=== PATIENT | female | born 1955 | race African-American/Black ===

== ENCOUNTER → 2018-02-11 11:06 | Outpatient (CLI) | payer MEDICARE, SELFPAY | PROVIDERS: PCP Family Medicine; Visit Provider Student in an Organized Health Care Education/Training Program | DX: N89.8 Other specified noninflammatory disorders of vagina (principal) | CPT/HCPCS: 87086 ==

== ENCOUNTER → 2018-02-19 18:50 | Outpatient (CLI) | payer MEDICARE, SELFPAY ==
--- NOTE | 2018-02-19 18:52 | DI.MRI.S_ITS ---
PROCEDURE: MR KNEE RT WO CON INDICATIONS: KNEE PAIN - right TECHNIQUE: Noncontrast sagittal PD fast spin echo and T2 fast spin echo with fat saturation, sagittal 3-D FLASH with fat saturation; coronal T1 spin echo and PD fast spin echo with fat saturation, and axial PD fast spin echo with fat saturation through the knee. COMPARISON: None. FINDINGS: Image quality: Excellent. Menisci: There is large degenerative tear involving the body and posterior horn of the medial meniscus, and peripheral aspect of anterior horn of the medial meniscus. The lateral meniscus demonstrates normal morphology and internal signal. The meniscal root ligaments appear intact. Cruciate ligaments: The anterior and posterior cruciate ligaments appear intact. Medial structures: The medial collateral ligament appears intact. Visualized portions of the pes anserinus tendons appear normal. No abnormal bursal fluid. Lateral structures: The lateral collateral ligament, long and short heads of the biceps femoris tendon appear intact. The popliteus tendon appears normal; the popliteofibular ligament appears intact. The posterosuperior and anteroinferior popliteomeniscal fascicles appear intact. The arcuate and fabellofibular ligaments appear intact, on either side of the lateral inferior geniculate artery. Iliotibial band appears normal. Anterior structures: The quadriceps and patellar tendons appear intact. Patellar alignment is normal. No femoral trochlear dysplasia or ventral trochlear prominence. No edema in the infrapatellar fat pad. Bones and cartilage: No fractures. There is severe cartilage thinning with denuded articular surface of the medial femorotibial compartment. Moderate cartilage loss and fibrillation of the patellofemoral compartment and mild cartilage loss of the lateral femorotibial compartment are noted. There is bone marrow edema in the medial femoral condyle and medial tibial plateau likely sequelae of bone on bone. Severe joint space narrowing, subchondral cyst formation and osteophyte formation in the medial femorotibial compartment. Joint space: There is small knee joint effusion. Tiny Moreira's cyst. Normal appearing synovial plicae are incidentally noted. IMPRESSION: 1. 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 2. Tricompartmental cartilage loss, most pronounced in the medial femorotibial compartment. 3. Small knee joint effusion. Dictated by: Barber Clarke M.D. on 02/20/2018 at 9:59 Transcribed by: MARIUSZ on 02/20/2018 at 10:07 Approved by: Barber Clarke M.D. on 02/20/2018 at 11:22
== END ==
PROVIDERS: PCP Family Medicine; Visit Provider Student in an Organized Health Care Education/Training Program
DX: M25.561 Pain in right knee (principal); M23.211 Derangement of anterior horn of medial meniscus due to old tear or injury, right knee; M23.221 Derangement of posterior horn of medial meniscus due to old tear or injury, right knee; M23.231 Derangement of other medial meniscus due to old tear or injury, right knee; M17.11 Unilateral primary osteoarthritis, right knee; M25.461 Effusion, right knee
CPT/HCPCS: 73721

== ENCOUNTER 2018-02-19 19:20 | Emergency (ER) | payer MEDICARE, SELFPAY ==
[2018-02-19 19:33] VITALS: BP 158/85; PULSE 61; RESP 19; TEMP 36.1; O2SAT 93; BMI 28.0
--- NOTE | 2018-02-19 19:40 | ED.BACK ---
HPI - Back Pain/Injury <DHAVAL Magana - Last Filed: 02/19/18 21:19> General Chief Complaint: Back Pain/Injury Stated Complaint: right side rib pain in the back. Time Seen by Provider: 02/19/18 19:40 Source: patient Mode of arrival: ambulatory Limitations: no limitations History of Present Illness HPI Narrative: pt says she was here getting mri of her R knee, saw we were not busy, so thought she would check in because she has been having L arm pain for mos and denies any injury, says the pain does not radiate and it is strictly in her L upper arm, says she takes 10mg oxycodones and they are not helping her pain and she does not know why she is hurting, also c/o R rib pain and says she fell a few days ago, would like both things checked and wants to know why she is hurting MD Complaint: other (as above) Onset (ago): month(s) Duration: constant Similar Symptoms Previously: Yes Severity: severe Quality: throbbing Radiation: none Relieving factors: none Exacerbating factors: movement Associated symptoms: other Treatments prior to arrival: prescription analgesics Related Data Previous Rx's Medication Instructions Recorded terbinafine HCl 250 mg PO QDAY #30 tab 06/05/17 sertraline 50 mg tablet 50 mg PO QDAY #30 tab 08/28/17 trazodone 100 mg tablet 100 mg PO HS PRN #30 tab 08/28/17 zolpidem 10 mg tablet 10 mg PO HS PRN #30 tab 08/28/17 oxycodone 10 mg tablet 10 mg PO Q6H PRN #120 tab 02/11/18 oxycodone ER 30 mg tablet,crush 30 mg PO Q12H #60 tab 02/11/18 resistant,extended release 12 hr Allergies Allergy/AdvReac Type Severity Reaction Status Date / Time No Known Drug Allergies Allergy Verified 02/19/18 19:43 Review of Systems <DHAVAL Magana - Last Filed: 02/19/18 21:19> Review of Systems All systems reviewed & are unremarkable except as noted in HPI and below Constitutional Reports as per HPI Musculoskeletal Reports as per HPI, Reports abnormal gait, Denies deformity, Reports limited range of motion, Denies muscle weakness and Denies numbness Integumentary/Breasts Reports as per HPI, Denies unusual bruising and Denies wounds Neurologic Reports abnormal gait and Denies numbness Exam <DHAVAL Magana - Last Filed: 02/19/18 21:19> Initial Vital Signs Initial Vital Signs: Vital Signs Temperature 97 F L 02/19/18 19:33 Pulse Rate 61 02/19/18 19:33 Respiratory Rate 19 02/19/18 19:33 Blood Pressure 158/85 H 02/19/18 19:33 Pulse Oximetry 93 02/19/18 19:33 Const General: cooperative, healthy appearing, comfortable, well developed and well groomed Nutritional Appearance: average body habitus Orientation: alert, awake and oriented x3 HENMT Head: normal to inspection and normocephalic Ears: hearing grossly normal bilaterally, external ears normal, TM's normal bilaterally and mastoids normal Nose: external nose normal and nares normal Face and sinus: normal facial exam, sinuses nontender and face symmetric Mouth: oral mucosae normal, lip normal, tongue normal, oropharynx normal and moist mucous membranes Teeth and gingiva: dentition normal and gingiva normal Throat: posterior oropharynx normal, tonsils normal and uvula midline Eyes General: appearance normal, both eyes and all related structures Visual Tse: normal visual tse by confrontation Eyelids: eyelids normal Conjunctivae: conjunctivae normal Sclera: sclerae normal Pupils: PERRL EOM: EOM intact bilaterally Neck Neck: normal visual inspection, full ROM, no meningeal signs, trachea midline, supple and No lymphadenopathy Chest Chest: normal inspection of the chest, normal palpation of entire chest wall, No crepitus and No tenderness Resp Effort & Inspection: normal respiratory effort and able to speak in complete sentences Auscultation: clear to auscultation bilaterally Cardio Rate: regular rate Rhythm: regular rhythm Heart Sounds: S1 normal and S2 normal Back/Spine/Pelvis Cervical Spine: cervical ROM normal Thoracic/Lumbar Spine: thoraco-lumbar ROM normal Skin General: no rashes or lesions noted, elasticity normal, turgor normal and dry skin Neuro General: alert, awake, oriented x3 and meningeal signs present Cognition: normal cognition Speech: speech normal Gait: normal gait Motor: muscle tone normal throughout Sensory Exam: no sensory deficits noted Extrem General: normal to inspection and full ROM Right upper extremity: normal to inspection and full ROM Left upper extremity: normal to inspection, full ROM and shoulder/upper arm Details: inspection abnormal and normal ROM; no tenderness and no swelling Right lower extremity: normal to inspection and full ROM Left lower extremity: normal to inspection and full ROM Psych Appearance: grossly normal and well kempt Mental Status: mental status grossly normal Speech and Movement: speech and movement normal Mood: congruent mood Affect: normal affect Attitude: cooperative Thought Process: normal Thought Content: normal Judgment: judgment good <Vickey Sherman MD - Last Filed: 02/20/18 02:32> Initial Vital Signs Initial Vital Signs: Vital Signs Temperature 97 F L 02/19/18 19:33 Pulse Rate 61 02/19/18 19:33 Respiratory Rate 19 02/19/18 19:33 Blood Pressure 158/85 H 02/19/18 19:33 Pulse Oximetry 93 02/19/18 19:33 Course <DHAVAL Magana - Last Filed: 02/19/18 21:19> Course Narrative: went to discuss xray results and pt asleep, had to shake her foot to awaken her, results and dc plan discussed Orders Ordered: ED Orders 02/19/18 19:46 XR humerus LT 2V Stat XR ribs RT min 3V w CXR1V Stat Discontinued Medications Ketorolac Tromethamine (Toradol) 60 mg IM NOW ONE Stop: 02/19/18 19:47 Last Admin: 02/19/18 19:51 Dose: 60 mg Vital Signs - 8 hr 02/19/18 19:33 Temperature 97 F L Pulse Rate 61 Respiratory Rate 19 Blood Pressure 158/85 H Pulse Oximetry 93 <Vickey Sherman MD - Last Filed: 02/20/18 02:32> Orders Ordered: ED Orders 02/19/18 19:46 XR humerus LT 2V Stat XR ribs RT min 3V w CXR1V Stat Discontinued Medications Ketorolac Tromethamine (Toradol) 60 mg IM NOW ONE Stop: 02/19/18 19:47 Last Admin: 02/19/18 19:51 Dose: 60 mg Vital Signs - 8 hr 02/19/18 19:33 Temperature 97 F L Pulse Rate 61 Respiratory Rate 19 Blood Pressure 158/85 H Pulse Oximetry 93 MDM - Back Pain/Injury <DHAVAL Magana - Last Filed: 02/19/18 21:19> Differential Diagnosis Differential diagnosis: Likely other (substance abuse, chronic pain issues, rib fx, pneumo, fall, humerus fx, oa) Discharge Plan Departure Patient Disposition: Home Clinical Impression: Arm pain, Rib pain Discharge Date/Time: 02/19/18 21:04 Interventions: ED Discharge Assessment Last Done: 02/19/18 21:02 Instructions: DI for Rib Contusion, DI for Arm Pain Prescriptions: No Action oxycodone 10 mg tablet 10 mg PO Q6H PRN (Reason: pain) Qty: 120 RF: 0 oxycodone 30 mg tablet,oral only,ext.rel.12 hr 30 mg PO Q12H Qty: 60 RF: 0 terbinafine HCl 250 MG tablet 250 mg PO QDAY Qty: 30 RF: 2 zolpidem 10 mg tablet 10 mg PO HS PRN (Reason: insomnia) Qty: 30 RF: 0 trazodone 100 mg tablet 100 mg PO HS PRN (Reason: insomnia) Qty: 30 RF: 5 sertraline 50 mg tablet 50 mg PO QDAY Qty: 30 RF: 5 Referrals: Peter Gr MD [Primary Care Provider] - (in approx 3-5 days as needed) <Vickey Sherman MD - Last Filed: 02/20/18 02:32> Cosign ED Attending Cosignature Attestation: I was present in the ER at the time of this patient's care. I was available for verbal consultation, or to see the patient directly if requested. I agree with the assessment and treatment plan.
--- NOTE | 2018-02-19 19:46 | DI.RAD.S_ITS ---
PROCEDURE: XR HUMERUS LT 2V INDICATIONS: PAIN TECHNIQUE: 2 views of the humerus were acquired. COMPARISON: None. FINDINGS: Bones: No fractures or dislocations. No suspicious bony lesions. There are mild degenerative changes of the left glenohumeral and acromioclavicular joints. Soft tissues: No suspicious soft tissue calcifications. IMPRESSION: No acute fracture or dislocation of the left humerus. Dictated by: Finesse Anthony M.D. on 02/19/2018 at 20:40 Approved by: Finesse Anthony M.D. on 02/19/2018 at 20:43
--- NOTE | 2018-02-19 19:46 | DI.RAD.S_ITS ---
PROCEDURE: XR RIBS RT MIN 3V W CXR 1V INDICATIONS: FALL, RIB PAIN TECHNIQUE: 2 views of the right ribs were acquired, along with a single view chest. COMPARISON: [facility], CR, XR CHEST 2 VIEWS, 06/14/2017, 21:24. FINDINGS: Surgical changes and devices: None. Bones and chest wall: Overlying soft tissues appear unremarkable. Severe degenerative changes of the right glenohumeral joint are noted. Subtle contour irregularity of the posterior lateral aspect of the right seventh rib noted, but is unchanged from comparison exam of 06/14/17 and likely represents a sequela of a prior healed rib fracture. Lungs and pleura: No pleural effusions or pneumothorax. Lungs appear clear. Mediastinum: Mediastinal contours appear normal. Heart size is normal. IMPRESSION: No convincing radiographic evidence of an acute right rib fracture. Consider followup radiographs if there is continued clinical concern. Dictated by: Finesse Anthony M.D. on 02/19/2018 at 20:34 Approved by: Finesse Anthony M.D. on 02/19/2018 at 20:39
[2018-02-19] MEDS: KETOROLAC 60 MG/2 ML VIAL IM (19:51)
== END 2018-02-19 21:04 | disposition home or self-care (01) ==
PROVIDERS: Emergency Provider Nurse Practitioner; PCP Family Medicine
DX: M79.601 Pain in right arm (principal); R07.81 Pleurodynia; M25.561 Pain in right knee; M23.211 Derangement of anterior horn of medial meniscus due to old tear or injury, right knee; M23.221 Derangement of posterior horn of medial meniscus due to old tear or injury, right knee; M23.231 Derangement of other medial meniscus due to old tear or injury, right knee; M17.11 Unilateral primary osteoarthritis, right knee; M25.461 Effusion, right knee
CPT/HCPCS: 71101; 73060; 73721; 96372; 99282; 99283; J1885

== ENCOUNTER 2018-07-31 15:27 | Emergency (ER) | payer MEDICARE, MEDICAID, SELFPAY ==
--- NOTE | 2018-07-31 15:37 | DI.RAD.S_ITS ---
PROCEDURE: XR CHEST 1V INDICATIONS: chest pain TECHNIQUE: One view of the chest was acquired. COMPARISON: None. FINDINGS: Surgical changes and devices: None. Lungs and pleura: Lungs are clear. No pleural effusions or pneumothorax. Mediastinum: Mediastinal contours appear normal. Heart size is normal. Bones and chest wall: No suspicious bony lesions. Overlying soft tissues appear unremarkable. IMPRESSION: No acute cardiopulmonary disease process. Dictated by: Berenice Ward MD, PhD on 07/31/2018 at 16:05 Approved by: Berenice Ward MD, PhD on 07/31/2018 at 16:06
[2018-07-31 15:41] VITALS: BP 151/92; PULSE 62; RESP 22; TEMP 36.7; O2SAT 99; BMI 30.7
[2018-07-31 16:04] LABS: Add Manual Diff / Slide Review NO; Basophils Absolute Auto 0 /uL (0-100); Basophils Percent Auto 0.7 % (0-2); Eosinophils Absolute Auto 200 /uL (0-450); Eosinophils Percent Auto 3.4 % (2-4); Hematocrit 44.2 % (36-46); Lymphocytes Absolute Auto 1900 /uL (1100-4500); Lymphocytes Percent Auto 40.5 % (25-40); Mean Corpuscular Hemoglobin 31.9 PG (26-34); Mean Corpuscular Volume 93.8 fL (80-100); Monocytes Absolute Auto 500 /uL (0-900); Monocytes Percent Auto 9.7 % (3-14); Neutrophils Absolute Auto 2200 /uL (1500-7000); Neutrophils Percent Auto 45.7 % (50-75); Platelet Count 278 X10^3/uL (150-400); Red Blood Cell Count 4.72 X10^6/uL (4.0-5.2); Red Cell Distribution Width 13.3 % (11.6-14.8); White Blood Cell Count 4.8 X10^3/uL (4.5-11.0)
--- NOTE | 2018-07-31 16:05 | ED.CHESTPAIN ---
HPI - Chest Pain General Chief Complaint: Chest Pain Stated Complaint: high blood pressure, taken at [facility] Time Seen by Provider: 07/31/18 15:55 Source: patient Mode of arrival: ambulatory Limitations: no limitations History of Present Illness HPI narrative: Patient is a 62-year-old female who presents with chest pain. She was sitting in the ophthalmology office when she had sudden onset chest pain radiating through to her back. At she has had a progressively got worse but now seems to have down. She denies any shortness of breath with exertion. No arm or jaw pain. She said that she ate some beef jerky and then started having some chest discomfort. She denies any history of hypertension or coronary artery disease. She has no abdominal pain nausea vomiting. MD complaint: chest pain Onset (ago): minute(s) Duration: improved Severity: moderate Quality: heaviness Pain radiation: back Relieving factors: nothing Related Data Home Medications Medication Instructions Recorded Confirmed oxycodone See Rx Instructions .ROUTE .COMPLEX 07/31/18 07/31/18 trazodone 50 mg PO BEDTIME 07/31/18 07/31/18 Previous Rx's Medication Instructions Recorded celecoxib 200 mg capsule 200 mg PO DAILY #30 cap 07/04/18 oxycodone 30 mg tablet 30 mg PO Q6H PRN #120 tab 07/10/18 zolpidem 5 mg tablet 5 mg PO HS PRN #7 tab 07/10/18 Allergies Allergy/AdvReac Type Severity Reaction Status Date / Time No Known Drug Allergies Allergy Verified 07/10/18 16:12 Review of Systems Review of Systems GENERAL: Denies chills, fatigue, malaise, fever, sweats, travel HEENT: Denies sinus pain, ear pain, sore throat, difficulty swallowing, neck pain RESPIRATORY: Denies dyspnea, cough, wheezing, hemoptysis, sputum. CARDIOVASCULAR: See HPI GASTROINTESTINAL: Denies nausea, vomiting, abdominal pain, diarrhea, constipation, melena. : Denies dysuria, frequency, incontinence, hematuria, urinary retention, flank pain. MUSCULOSKELETAL: Denies weakness, joint pain, or bony pain SKIN: No rash, no erythema, no pruritus NEUROLOGIC: Denies weakness, dizziness, headache, numbness, change in speech, confusion PSYCHIATRIC: No concerning psychosocial issues. 12 point review of systems is negative except for those stated above and HPI [facility] Social History Smoking Status: Unknown if ever smoked quit status: considering quitting Exam Initial Vital Signs Initial Vital Signs: Vital Signs Temperature 98.0 F 07/31/18 15:41 Pulse Rate 62 07/31/18 15:41 Respiratory Rate 22 07/31/18 15:41 Blood Pressure 151/92 H 07/31/18 15:41 Pulse Oximetry 99 07/31/18 15:41 GENERAL: Alert well-appearing middle-aged female no acute distress HEENT: Head atraumatic,EOMI, pupils reactive, asymmetric, neck supple, no JVD CARDIOVASCULAR: Regular rate and rhythm without murmurs, rubs or gallops. RESPIRATORY: Breath sounds equal bilaterally, no wheezes rales or rhonchi. ABDOMEN: Soft, nontender. Normoactive bowel sounds all 4 quadrants. No guarding or rebound. EXTREMITIES: Normal range of motion, no clubbing or edema. Neurovascularly intact NEUROLOGICAL: Alert and oriented x4.Normal gait and speech. Cranial nerves II through XII grossly intact. SKIN: Warm, dry, no laceration, no petechiae, no rashes or lesions. Scores HEART Score Heart Score history: Slightly Suspicious Heart Score EKG: Normal Heart Score Age: 45-64 years old Heart Score risk factors: No known risk factors Heart Score troponin: < or = to normal limit Heart Score Total: 1 PERC Score Age greater than or equal to 50 years: Yes Heart rate greater than or equal to 100 bpm: No Room Air O2 Sat less than 95%: No Unilateral leg swelling: No Recent trauma or surgery: No Hemoptysis: No Prior PE or DVT: No Hormone Use: No Total PERC Score: 1 Wells' Criteria for PE Clinical signs and symptoms of PE: No PE is #1 Dx or equally likely: No Heart rate > 100: No Immobilization at least 3 days or surg in previous 4 weeks: No History of PE or DVT: No Hemoptysis: No Malignancy w/Treatment within 6 months or palliative: No Wells' PE Score total: 0 Course Orders Ordered: Discontinued Medications Aspirin (Aspirin Chew) 324 mg PO NOW ONE Stop: 07/31/18 16:04 Last Admin: 07/31/18 16:13 Dose: 324 mg Vital Signs - 8 hr 07/31/18 15:41 07/31/18 16:41 Temperature 98.0 F Pulse Rate 62 Respiratory Rate 22 19 Blood Pressure 151/92 H Blood Pressure [Left Arm] 139/93 H Pulse Oximetry 99 MDM - Chest Pain Lab Data Attestation: I reviewed the patient's lab results. Result diagrams: 07/31/18 15:55 07/31/18 15:55 Lab Results 07/31/18 07/31/18 07/31/18 Range/Units 15:55 15:55 15:55 WBC 4.8 (4.5-11.0) X10^3/uL RBC 4.72 (4.0-5.2) X10^6/uL Hgb 15.0 (12.0-16.0) g/dL Hct 44.2 (36-46) % MCV 93.8 (80-100) fL MCH 31.9 (26-34) PG MCHC 34.0 (30-36) % RDW 13.3 (11.6-14.8) % Plt Count 278 (150-400) X10^3/uL Neut % (Auto) 45.7 L (50-75) % Lymph % (Auto) 40.5 H (25-40) % Smyth % (Auto) 9.7 (3-14) % Eos % (Auto) 3.4 (2-4) % Baso % (Auto) 0.7 (0-2) % Neut # (Auto) 2200 (4785-0248) /uL Lymph # (Auto) 1900 (0951-2365) /uL Smyth # (Auto) 500 (0-900) /uL Eos # (Auto) 200 (0-450) /uL Baso # (Auto) 0 (0-100) /uL PT 12.0 (10.1-12.7) SECONDS INR 1.0 (0.9-1.3) APTT 30 (26.4-36.2) SECONDS Sodium 140 (137-145) mmol/L Potassium 3.9 (3.4-5.1) mmol/L Chloride 106 (98-107) mmol/L Carbon Dioxide 26 (22-32) mmol/L BUN 11 (7-17) mg/dL Creatinine 0.80 (0.52-1.04) mg/dL Estimated GFR > 60.0 (>60) mL/min BUN/Creatinine Ratio 13.8 (6-22) Glucose 99 (80-110) mg/dL Calcium 9.2 (8.4-10.2) mg/dL Total Bilirubin 0.6 (0.2-1.3) mg/dL AST 45 H (14-36) IU/L ALT 44 (9-52) IU/L Alkaline Phosphatase 92 (38-126) U/L Total Creatine Kinase 97 (30-135) U/L CK-MB (CK-2) TNP CK-MB (CK-2) Rel Index TNP Troponin I < 0.012 (0.01-0.034) ng/mL Total Protein 7.7 (6.3-8.2) g/dL Albumin 4.2 (3.5-5.0) g/dL Globulin 3.5 (1.7-4.1) g/dL Albumin/Globulin Ratio 1.2 (1.0-2.8) Lipase 33 (23-300) U/L // Range/Units 18:25 WBC (4.5-11.0) X10^3/uL RBC (4.0-5.2) X10^6/uL Hgb (12.0-16.0) g/dL Hct (36-46) % MCV (80-100) fL MCH (26-34) PG MCHC (30-36) % RDW (11.6-14.8) % Plt Count (150-400) X10^3/uL Neut % (Auto) (50-75) % Lymph % (Auto) (25-40) % Smyth % (Auto) (3-14) % Eos % (Auto) (2-4) % Baso % (Auto) (0-2) % Neut # (Auto) (2504-3725) /uL Lymph # (Auto) (3642-6653) /uL Smyth # (Auto) (0-900) /uL Eos # (Auto) (0-450) /uL Baso # (Auto) (0-100) /uL PT (10.1-12.7) SECONDS INR (0.9-1.3) APTT (26.4-36.2) SECONDS Sodium (137-145) mmol/L Potassium (3.4-5.1) mmol/L Chloride (98-107) mmol/L Carbon Dioxide (22-32) mmol/L BUN (7-17) mg/dL Creatinine (0.52-1.04) mg/dL Estimated GFR (>60) mL/min BUN/Creatinine Ratio (6-22) Glucose (80-110) mg/dL Calcium (8.4-10.2) mg/dL Total Bilirubin (0.2-1.3) mg/dL AST (14-36) IU/L ALT (9-52) IU/L Alkaline Phosphatase (38-126) U/L Total Creatine Kinase (30-135) U/L CK-MB (CK-2) CK-MB (CK-2) Rel Index Troponin I 0.017 (0.01-0.034) ng/mL Total Protein (6.3-8.2) g/dL Albumin (3.5-5.0) g/dL Globulin (1.7-4.1) g/dL Albumin/Globulin Ratio (1.0-2.8) Lipase (23-300) U/L Imaging Data Chest x-ray: Radiologist's impression: PROCEDURE: XR CHEST 1V INDICATIONS: chest pain TECHNIQUE: One view of the chest was acquired. COMPARISON: None. FINDINGS: Surgical changes and devices: None. Lungs and pleura: Lungs are clear. No pleural effusions or pneumothorax. Mediastinum: Mediastinal contours appear normal. Heart size is normal. Bones and chest wall: No suspicious bony lesions. Overlying soft tissues appear unremarkable. IMPRESSION: No acute cardiopulmonary disease process. Dictated by: Berenice Ward MD, PhD on 07/31/2018 at 16:05 ECG Data Attestation: I personally reviewed and interpreted this ECG as follows: Prior ECG tracings: not available for review Interpretation: EKG 1. Normal sinus rhythm rate 59 year interval 174 QRS [address] changes slightly peaked T-waves in V3-V6, no ST depression no T-wave inversion no priors to compare Repeat EKG normal sinus rhythm rate 61 p.r. interval 185 no changes from prior she does have T-wave inversion more pronounced in lead [address] elevations. MDM Narrative Medical decision making narrative: 5:15 p.m. the patient is wanting to leave. I discussed with her a need for 2nd troponin and then likely DC. Her 2nd troponin is actually supposed to be at 7:00 p.m. however she has agreed to stay until 6:00 p.m. to have her 2nd troponin drawn. We discussed how she would likely still need a stress test possible further studies [place] has not yet been completely ruled out. I suspect that she will likely go home a 2nd troponin returns normal. she overall is chest pain-free while in the ED and does not require any medication. I was informed by nursing staff that after patient's 2nd troponin at 6:00 p.m. and she left [facility]. I did not get a chance to talk with her beforehand. She is low risk with a low heart score Discharge Plan Departure Patient Disposition: Left Against Medical Advice Clinical Impression: Left against medical advice Discharge Date/Time: 07/31/18 18:11 Interventions: ED Discharge Assessment Last Done: 07/31/18 18:11 Prescriptions: No Action zolpidem 5 mg tablet 5 mg PO HS PRN (Reason: insomnia) Qty: 7 RF: 0 oxycodone 30 mg tablet 30 mg PO Q6H PRN (Reason: pain) Qty: 120 RF: 0 oxycodone 10 mg tablet See Rx Instructions .ROUTE .COMPLEX RF: 0 trazodone 50 mg tablet 50 mg PO BEDTIME RF: 0 celecoxib [Celebrex] 200 mg capsule 200 mg PO DAILY Qty: 30 RF: 2 Referrals: Lorne Zamora MD [Primary Care Provider] - Stand Alone Forms: Against Medical Advice
[2018-07-31] MEDS: ASPIRIN 81 MG TAB 324 MG PO (16:13)
[2018-07-31 16:17] LABS: PTT Partial Thromboplastin Tim 30 SECONDS (26.4-36.2)
[2018-07-31 16:19] LABS: Alanine Aminotransferase 44 IU/L (9-52); Albumin 4.2 g/dL (3.5-5.0); Albumin Globulin Ratio 1.2 (1.0-2.8); Alkaline Phosphatase 92 U/L (38-126); Aspartate Aminotransferase 45 IU/L (14-36); BUN Creatinine Ratio 13.8 (6-22); Bilirubin Total 0.6 mg/dL (0.2-1.3); Blood Urea Nitrogen 11 mg/dL (7-17); Calcium 9.2 mg/dL (8.4-10.2); Carbon Dioxide 26 mmol/L (22-32); Chloride 106 mmol/L (98-107); Creatine Kinase 97 U/L (30-135); Estimated Glomerular Filt Rate > 60.0 mL/min (>60); Globulin 3.5 g/dL (1.7-4.1); Glucose 99 mg/dL (80-110); HEMOLYSIS < 15 (0-50); Lipase 33 U/L (23-300); Potassium 3.9 mmol/L (3.4-5.1); Sodium 140 mmol/L (137-145); Total Protein 7.7 g/dL (6.3-8.2)
--- NOTE | 2018-07-31 16:26 | PC.NURSE ---
Patient was sitting at [facility] when she had a sudden onset of left chest pain, some SOB. Patient has never had pain like this before. Patient is a 2 pack a day smoker and recently started using an E pen. Patient states she ate some beef sticks and peanuts and is concerned that it might be reflux. Denies stress.
[2018-07-31 16:30] LABS: Troponin I < 0.012 ng/mL (0.01-0.034)
--- NOTE | 2018-07-31 16:37 | PC.NURSE ---
Repeat EKG being completed at bedside
[2018-07-31 16:41] VITALS: BP 139/93; RESP 19
--- NOTE | 2018-07-31 17:24 | PC.NURSE ---
Patient requesting to leave, Elvis at bedside. Agreed to stay for repeat blood draw at 1800.
--- NOTE | 2018-07-31 18:33 | PC.NURSE ---
Patient dressed and walked out of room requesting to leave. Informed the patient she would need to sign out AMA. Signed by patient. Patient aware of risks of heart attack and potentially .
[2018-07-31 18:53] LABS: Troponin I 0.017 ng/mL (0.01-0.034)
--- NOTE | 2018-07-31 19:22 | PC.NURSE ---
Pt troponin reviewed w/ Dr. Leal. No new orders. States she would have discharged the patient w/ that lab report. Prior to leaving pt was told to f/u w/ PMD, return for any difficulty or concerns or worsening symptoms.
--- NOTE | 2018-07-31 19:31 | PC.NURSE ---
Pt called back, informed of lab results. Encouraged to return if any difficulty or concerns, worsening difficulty, return sooner for any difficulty. Email sent to Dr. Zamora (pt's PCP) requesting follow up appointment.
== END 2018-07-31 18:11 | disposition left against medical advice (07) ==
PROVIDERS: Emergency Provider Emergency Medicine; PCP Student in an Organized Health Care Education/Training Program
DX: R07.9 Chest pain, unspecified (principal); R68.84 Jaw pain; R03.0 Elevated blood-pressure reading, without diagnosis of hypertension; Z53.20 Procedure and treatment not carried out because of patient's decision for unspecified reasons
CPT/HCPCS: 36415; 36591; 71045; 80053; 82550; 83690; 84484; 85025; 85610; 85730; 93005; 93010; 99283; 99285

== ENCOUNTER → 2018-08-07 15:32 | Outpatient (CLI) | payer MEDICARE, MEDICAID, SELFPAY ==
[2018-08-07 17:26] LABS: Cholesterol 137 mg/dL (140-199); HDL Cholesterol 63 mg/dL (40-60); LDL Cholesterol Calculated 65 mg/dL (<100); Magnesium 2.1 mg/dL (1.6-2.3); Phosphorous 3.7 mg/dL (2.8-4.1); Triglycerides 44 mg/dL (35-150)
[2018-08-07 17:27] LABS: Hemoglobin A1C% w Est Avg Glu 5.2 % (4.0-6.0)
[2018-08-07 17:34] LABS: High Sensitivity CRP - Cardiac 0.3 mg/L (1.0-3.0)
[2018-08-07 20:43] LABS: Vitamin D 25 Hydroxy (D3) 37.8 ng/mL (30.0-100.0)
== END ==
PROVIDERS: PCP Student in an Organized Health Care Education/Training Program; Visit Provider Student in an Organized Health Care Education/Training Program
DX: B37.3 Candidiasis of vulva and vagina (principal); E66.9 Obesity, unspecified; E55.9 Vitamin D deficiency, unspecified; I20.8 Other forms of angina pectoris; R25.2 Cramp and spasm; Z13.220 Encounter for screening for lipoid disorders
CPT/HCPCS: 36415; 80061; 82306; 83036; 83735; 84100; 86140

== ENCOUNTER → 2018-09-20 08:00 | Outpatient (CLI) | payer MEDICARE, MEDICAID, SELFPAY ==
--- NOTE | 2018-09-20 08:02 | DI.MG.S_ITS ---
Patient Name: PATRICIA JC date: 1955 Sex: F Attending Physician: Sera Indications: Date: 09/20/2018 08:52 At the request of: BREONNA EDMONDSON Procedure: MM screening mammo BI BILATERAL DIGITAL SCREENING MAMMOGRAM 3D/2D WITH CAD: 09/20/2018 CLINICAL: Routine screening. Baseline exam. No prior exams were available for comparison. The tissue of both breasts is heterogeneously dense. This may lower the sensitivity of mammography. Current study was also evaluated with a Computer Aided Detection (CAD) system. There is an oval equal density focal asymmetry in the right breast superior lateral quadrant anterior to middle depth. Finding is best noted on tomographic CC slice 12 and MLO slice 16. There also is an asymmetry in the right breast anterior depth inferior region seen on the mediolateral oblique view only. No other significant masses, calcifications, or other findings are seen in either breast. IMPRESSION: INCOMPLETE: NEEDS ADDITIONAL IMAGING EVALUATION 1) The oval equal density focal asymmetry in the right breast superior lateral quadrant anterior to middle depth is indeterminate. Additional views with possible ultrasound are recommended. 2) The asymmetry in the right breast anterior depth inferior region seen on the mediolateral oblique view only is indeterminate. Additional views with possible ultrasound are recommended. This exam was interpreted at Station ID: [id number]. NOTE: For mammograms, a report in lay terms will be sent to the patient. Approximately 15% of breast malignancies will not be visualized mammographically. In the management of a palpable breast mass, a negative mammogram must not discourage biopsy of a clinically suspicious lesion. Electronically Signed By: Finesse Anthony M.D. ecl/:09/20/2018 12:54:43 Continued Report - Page 2 of 2 Patient Name: PATRICIA JC date: 1955 Sex: F Attending Physician: Sera Indications: Date: 09/20/2018 08:52 At the request of: BREONNA EDMONDSON Procedure: MM screening mammo BI letter sent: Additional Imaging Needed ACR BI-RADS Category 0: Incomplete [id number]
--- NOTE | 2018-09-20 08:42 | PM.TREADMILL ---
Cardiac Stress Test Report Referral & Results Date Patient Seen: 09/20/18 Time Patient Seen: 08:30 Requesting provider: Lorne Zamora Indication: Typical chest pain at rest Rest ECG: NSR Procedure Note: Today following both written and verbal informed consent, the patient was exercised according to a standard Masood protocol. The patient exercised for a total of 5 minutes 30 seconds achieving a maximum heart rate of 138. Patient's maximum systolic blood pressure was 180. This was an estimated 7 MET's. Testing discontinued when the patient was unable to continue. She endorsed typical angina at and exertion which resolved quickly with rest. Additionally, she had shortness of breath and marked fatigue. Stated that she had a cold today. ZAIRA about 5% on sedentary scale. No EKG changes. Impression: Intermediate probability for ischemia. Muhammad treadmill score of -3 indicates 5-year survival of 90%. Please note: Actual ECG tracings can be found in the PACS system.
== END ==
PROVIDERS: PCP Student in an Organized Health Care Education/Training Program; Visit Provider Student in an Organized Health Care Education/Training Program
DX: Z12.31 Encounter for screening mammogram for malignant neoplasm of breast (principal); I20.8 Other forms of angina pectoris
CPT/HCPCS: 77063; 77067; 93016; 93017; 93018

== ENCOUNTER → 2018-12-04 13:12 | Outpatient (CLI) | payer MEDICARE, MEDICAID, OTHER, SELFPAY ==
--- NOTE | 2018-12-04 13:15 | DI.MG.S_ITS ---
UNILATERAL RIGHT DIGITAL DIAGNOSTIC MAMMOGRAM 3D/2D WITH ADDITIONAL VIEWS: 12/04/2018 CLINICAL: Additional evaluation requested from prior study. Comparison is made to exam dated: 09/20/2018 [facility]. The tissue of right breast is heterogeneously dense. This may lower the sensitivity of mammography. There is 0.5 cm oval equal density focal asymmetry in the right breast at 10 o'clock anterior depth. This is seen in additional views and has not significantly changed. The benign asymmetry in the right breast anterior depth inferior region seen on the mediolateral oblique view only is no longer seen. This is consistent with summation artifact. No other significant masses or calcifications are seen in the breast. IMPRESSION: INCOMPLETE: NEEDS ADDITIONAL IMAGING EVALUATION The 0.5 cm oval equal density focal asymmetry in the right breast at 10 o'clock anterior depth is indeterminate. An ultrasound is recommended. The previously described asymmetry in the anterior inferior right breast seen only on the mediolateral oblique view disperses with additional views and is consistent with summation artifact. Of note, the recommended ultrasound was scheduled to immediately follow this examination; however, the patient could not wait for it because she had another appointment she did not want to miss. The patient was rescheduled for another ultrasound appointment. This exam was interpreted at Station ID: [id number]. NOTE: For mammograms, a report in lay terms will be sent to the patient. Approximately 15% of breast malignancies will not be visualized mammographically. In the management of a palpable breast mass, a negative mammogram must not discourage biopsy of a clinically suspicious lesion. Electronically Signed By: Kartik Aparicio M.D. aty/:12/05/2018 09:54:47 letter sent: Need Ultrasound ACR BI-RADS Category 0: Incomplete [id number]
== END ==
PROVIDERS: PCP Student in an Organized Health Care Education/Training Program; Visit Provider Student in an Organized Health Care Education/Training Program
DX: R92.8 Other abnormal and inconclusive findings on diagnostic imaging of breast (principal)
CPT/HCPCS: 77065; G0279

== ENCOUNTER → 2018-12-13 15:07 | Outpatient (CLI) | payer MEDICARE, MEDICAID, OTHER, SELFPAY ==
--- NOTE | 2018-12-13 15:09 | DI.US.S_ITS ---
LIMITED ULTRASOUND OF RIGHT BREAST AND AXILLA: 12/13/2018 CLINICAL: Patient returns today to evaluate a focal asymmetry in the right breast. Comparison is made to exams dated: 12/04/2018 mammogram and 09/20/2018 mammogram - [facility]. Color flow and real-time ultrasound of the right breast 9-10 o'clock, and axilla regions were performed. Langley scale images of the real-time examination were reviewed. There is a 0.7 x 0.5 x 0.4 cm oval circumscribed hypoechoic mass with no vascularity on Doppler ultrasound located in the right breast at 9:30 5 cm from the nipple. This appears to correlate with the finding seen on mammography. Targeted ultrasound of the axilla demonstrates morphologically normal lymph nodes. IMPRESSION: SUSPICIOUS OF MALIGNANCY 1) 0.7 x 0.5 x 0.4 cm oval mass in the right breast at 9:30 5 cm from the nipple may represent a fibroadenoma and is at low suspicion for malignancy. An ultrasound guided biopsy is recommended. 2) No ultrasound evidence of right axillary lymphadenopathy. These results and recommendations were discussed with the patient at the time of the exam by Dr. Anthony in person. This exam was interpreted at Station ID: [id number]. Electronically Signed By: Finesse Anthony M.D. ecl/:12/13/2018 15:37:11 letter sent: Biopsy Required Ultrasound BI-RADS: 4a Suspicious abnormality - low suspicion for malignancy
== END ==
PROVIDERS: PCP Student in an Organized Health Care Education/Training Program; Visit Provider Student in an Organized Health Care Education/Training Program
DX: R92.8 Other abnormal and inconclusive findings on diagnostic imaging of breast (principal); N63.11 Unspecified lump in the right breast, upper outer quadrant
CPT/HCPCS: 76642

== ENCOUNTER → 2018-12-27 14:07 | Outpatient (CLI) | payer MEDICARE, MEDICAID, OTHER, SELFPAY ==
--- NOTE | 2018-12-27 | DI.MG.S_ITS ---
UNILATERAL RIGHT DIGITAL DIAGNOSTIC MAMMOGRAM POST-NEEDLE BIOPSY: 12/27/2018 CLINICAL: Right abnormal mammogram. Comparison is made to exams dated: 12/04/2018 mammogram, 09/20/2018 mammogram, 12/13/2018 ultrasound, and 12/27/2018 ultrasound biopsy - [facility]. The tissue of right breast is heterogeneously dense. This may lower the sensitivity of mammography. There is a newly placed marker clip in the appropriate position in the right breast at 9:30 o'clock anterior depth. This marker clip placement is at the biopsy site. IMPRESSION: POST PROCEDURE MAMMOGRAM FOR MARKER PLACEMENT Marker clip in the appropriate position in the right breast at 9:30 o'clock anterior depth at the biopsy site. This exam was interpreted at Station ID: [id number]. NOTE: For mammograms, a report in lay terms will be sent to the patient. Approximately 15% of breast malignancies will not be visualized mammographically. In the management of a palpable breast mass, a negative mammogram must not discourage biopsy of a clinically suspicious lesion. Electronically Signed By: Noé Saunders M.D. slc/:12/27/2018 15:47:20 ACR BI-RADS Category Post-procedure mammogram for marker placement
--- NOTE | 2018-12-27 | PATH_ITS ---
[facility] Accession Number: [id number] . 01 Material submitted: . breast - RT BREAST BX . 02 Diagnosis: Right Breast, Needle Core Biopsy: Fibroadeomatous change (spanning 5 mm) and fibrocystic changes. Negative for atypical hyperplasia, in situ or invasive carcinoma. MRV 12/30/2018 1051 Local . 02 Comment: Please correlate with the clinical and imaging findings. . As part of routine quality consultant, Dr. Berry has reviewed this case and agrees with the above interpretation. . 02 Electronically signed: . John Potts MD, PhD, Pathologist NPI- [id number] . 01 Gross description: . Received in formalin, labeled RT breast BX, are multiple fragments of fatty tissue (1.5 x 1.2 x 0.2 cm in aggregate). Entirely submitted in cassette A1. Note: The approximate total fixation time in formalin is calculated to be 65 hours 30 minutes. ([id number]) /MRV 12/29/2018 1929 Local . 02 Pathologist provided ICD-10: D24.1 . 02 CPT . 024138 Performed at: 01 [facility] [address] [facility], [place], [place] [id number] MD Robbin Stewart MD Phone: [phone] Performed at: 02 [facility] [address] [place], [place] [id number] MD Amy Marinelli MD Phone: [phone]
--- NOTE | 2018-12-27 14:09 | DI.US.S_ITS ---
ULTRASOUND GUIDED BIOPSY RIGHT BREAST USING VACUUM DEVICE WITH MARKING DEVICE INSERTED AND POST DIGITAL MAMMOGRAPHIC IMAGIN12/27/2018 CLINICAL: BX OF RT BREAST MASS. PATIENT CONSENT: Risks (minor bleeding, infection, vasovagal reaction and repeat procedure), benefits and alternatives were explained to the patient and written informed consent was obtained. Correlation is made to exams dated: 12/13/2018 ultrasound, 12/04/2018 mammogram, 09/20/2018 mammogram, and 12/27/2018 mammogram - [facility]. An ultrasound guided biopsy using real-time ultrasound was performed for the 0.7 cm mass located in the right breast at 9 o'clock anterior depth 5 cm from the nipple. The skin was prepped in the usual manner. Topical anesthetic was administered to the access site. A skin hesham was made in the breast. The abnormality was approached from the lateral aspect. A 13 gauge biopsy needle was placed adjacent to the abnormality under ultrasound guidance. Once the needle was documented to be in the correct location, four specimens were obtained using the Mammotome biopsy system. The patient received additional topical anesthetic during the procedure. A clip was inserted into the biopsy cavity. A sterile dressing was applied to the access site. Post procedure digital mammographic imaging demonstrates the location device at the targeted area. The specimens were sent to the laboratory for pathological analysis. IMPRESSION: ULTRASOUND GUIDED BIOPSY BENIGN Ultrasound guided biopsy of the 0.7 cm mass in the right breast at 9 o'clock anterior depth 5 cm from the nipple was successful with no apparent post procedure complications. Pathology indicates benign fibroadenomatoid change and fibrocystic changes (FC). Pathology results are concordant with imaging findings. Return to annual mammogram screening schedule is recommended. Results were communicated to the referring clinician. This exam was interpreted at Station ID: [id number]. Noé Sun M.D. slc,krg/:12/31/2018 21:11:24
== END ==
PROVIDERS: PCP Student in an Organized Health Care Education/Training Program; Visit Provider Student in an Organized Health Care Education/Training Program
DX: D24.1 Benign neoplasm of right breast (principal); N60.11 Diffuse cystic mastopathy of right breast
CPT/HCPCS: 19083; 77065

== ENCOUNTER → 2019-02-25 15:34 | Outpatient (CLI) | payer MEDICARE, MEDICAID, SELFPAY ==
[2019-02-25 18:48] LABS: HIV 1 & 2 Ab/Ag 4th Gen Combo NEGATIVE (NEGATIVE); Hep C Virus Ab w/Reflex Quant REACTIVE s/c (NEGATIVE)
== END ==
PROVIDERS: PCP Student in an Organized Health Care Education/Training Program; Visit Provider Student in an Organized Health Care Education/Training Program
DX: Z71.1 Person with feared health complaint in whom no diagnosis is made (principal)
CPT/HCPCS: 36415; 86803; 87389; 87522

== ENCOUNTER → 2020-05-12 10:35 | Outpatient (CLI) | payer MEDICARE, MEDICAID, SELFPAY ==
--- NOTE | 2020-05-12 10:37 | DI.RAD.S_ITS ---
PROCEDURE: XR SHOULDER RT MIN 2V INDICATIONS: UPDATE IMAGING TECHNIQUE: 3 views of the shoulder were acquired. COMPARISON: [facility], RG, XR SHOULDER 2V RIGHT, 03/06/2018, 12:05. FINDINGS: Bones: No fracture. Severe right glenohumeral joint degeneration with qdtl-ej-wrxw appearance. Scattered degenerative subchondral sclerosis and spurring. Mild to moderate right AC joint degeneration. Soft tissues: No suspicious soft tissue calcifications. IMPRESSION: Severe right shoulder joint degeneration. This has progressed since prior study from 03/06/18. Dictated by: Morgan Henley M.D. on 05/12/2020 at 11:34 Approved by: Morgan Henley M.D. on 05/12/2020 at 11:36
== END ==
PROVIDERS: Family Provider Student in an Organized Health Care Education/Training Program; PCP Student in an Organized Health Care Education/Training Program; Referring Provider Physical Medicine & Rehabilitation; Visit Provider Physical Medicine & Rehabilitation
DX: M25.511 Pain in right shoulder (principal); M19.011 Primary osteoarthritis, right shoulder
CPT/HCPCS: 73030; 99214

== ENCOUNTER → 2021-08-01 14:11 | Outpatient (CLI) | payer MEDICARE, MEDICAID, SELFPAY ==
[2021-08-01 15:01] LABS: COVID19 -Nasal RAPID Negative (Negative)
== END ==
PROVIDERS: Family Provider Student in an Organized Health Care Education/Training Program; PCP Student in an Organized Health Care Education/Training Program; Visit Provider Surgery
DX: Z01.812 Encounter for preprocedural laboratory examination (principal); Z20.822 Contact with and (suspected) exposure to COVID-19
CPT/HCPCS: 87635; C9803

== ENCOUNTER 2021-08-02 11:47 | Day surgery (SDC) | payer MEDICARE, MEDICAID, SELFPAY ==
[2021-08-01 10:34] VITALS: BMI 30.8
[2021-08-02] VITALS (12 sets, daily range): BP systolic 105–158; BP diastolic 61–100; PULSE 63–89; RESP 14–20; TEMP 35.9–36.8; O2SAT 15–100; BMI 30.8
--- NOTE | 2021-08-02 | PATH_ITS ---
[facility] Accession Number: [id number] No. of containers..01 Tissue . 01 Material submitted: . hernia - HERNIA SAC . 01 Diagnosis: Soft Tissue, Ventral Hernia, Herniorrhaphy: Fibroadipose tissue, consistent with hernial tissues. Negative for neoplasia. MRV 08/05/2021 1432 Local . 01 Electronically signed: . Jesica Herrera MD, Pathologist NPI- [id number] . 01 Gross description: . The specimen is received in formalin, labeled hernia sac, and consists of an excision of fibroadipose tissue measuring 6.8 x 5.0 x 2.7 cm. Sectioning the specimen reveals red-brown and fibrous to pale yellow and fatty cut surfaces, free of identifiable lesions or masses. The specimen is representatively submitted in two cassettes. ([id number]) /MRV 08/03/2021 1504 Local . 01 Pathologist provided ICD-10: K43.9 . 01 CPT . 007901 Specimen Comment: A courtesy copy of this report has been sent to [phone] Performed at: 01 [facility] [address] [place] [address], [place], [place] [id number] MD Robbin Stewart MD Phone: [phone]
[2021-08-02] MEDS: LACTATED RINGERS 1,000 ML 42 ML IV (12:35)
[2021-08-02] MEDS: ACETAMINOPHEN 325 MG TABLET 975 MG PO (12:39)
[2021-08-02] MEDS: GABAPENTIN 300 MG CAPSULE PO (12:39)
--- NOTE | 2021-08-02 13:11 | PM.PREOP ---
Pre-operative Note COVID-19 COVID-19 status: Negative Result date/Date tested (Pos, Neg/Pending): 08/01/21 Interval Note History & Physical reviewed/Exam performed by Physician: Yes Changes to H&P: No ASA Class (for procedural sedation): II
[2021-08-02] MEDS: CEFAZOLIN 2 GM/20 ML SYRINGE IV (13:26)
--- NOTE | 2021-08-02 14:06 | SUR.OPER ---
Supine on padded OR bed, head on gel donut, arms secured on padded arm boards at <90 degrees abduction, legs uncrossed, safety belt at thigh, tape over blanket over lower legs. Gel pad under heels.
[2021-08-02] MEDS: BUPIVACAINE 0.5% (PF) VIAL 30 ML INJ (14:27)
[2021-08-02] MEDS: LIDOCAINE 1% W/EPI 20 ML INJ (14:30)
--- NOTE | 2021-08-02 15:05 | P.OP_ITS ---
Operative Date/Time/Diagnoses Date of procedure: 08/02/21 Time of procedure: 15:05 Pre-op diagnosis: Ventral incisional hernia Post-op diagnosis: same Procedure & Clinicians Procedure: Open incarcerated ventral incisional hernia repair with mesh Same procedure as scheduled: Yes Surgeon: Tani Pitts Anesthesia Type: General Operative Notes Procedure in detail: Ancef was administered. The patient was brought to the operating room, placed on the table in the supine position and general endotracheal anesthesia was induced. The abdomen was prepped and draped in the usual fashion. A time-out was performed. A 7 cm transverse incision was made over the palpable ventral hernia which was about 4 fingerbreadths above the umbilicus near the superior and of the old laparotomy scar. Dissection was carried down to the fascia. There was a primary defect which was about 2 cm diameter and a smaller defect about 5 mm in diameter just inferior to the larger defect. The thin bridge of fascia between them was divided creating 1 larger defect. The hernia sac was freed from the fascial ring and the peritoneal cavity was entered. The contents of the hernia appeared to be entirely fatty the peritoneum without any obvious incarcerated bowel. There was no bowel or omentum adherent to the sac. A portion of the sac was resected and sent as a specimen. The peritoneal sac was closed with a running 3-0 Vicryl. A finger was inserted into the abdomen and palpation demonstrated another hernia inferior to the first defect. This defect was about 1.5 cm inferior and about a cm in diameter. This hernia also consisted of fatty peritoneal sac. The fascia was cleared around this defect and yet another small 5 mm defect was found inferior to this defect. These 2 inferior defects were closed separately with interrupted 0 Ethibond suture in a transverse manner. The primary defect was also closed with multiple interrupted 0 Ethibond sutures in an axial orientation. The subcutaneous adipose tissue was cleared off of the anterior sheath circumferentially about 2 cm in each direction from all the repaired defects A piece of polypropylene mesh was trimmed to fit over the fascial closures and secured with Tisseel. Once the Tisseel was dried the subcutaneous adipose tissue was closed with interrupted 3- 0 Vicryl sutures. The skin was closed with multiple interrupted 3-0 Vicryl dermal sutures followed by a running 4 Monocryl subcuticular closure. Steri-Strips were applied and an abdominal binder was applied. Post-operative Condition: stable Disposition: PACU
[2021-08-02] MEDS: HYDROMORPHONE 2 MG INJ IV ×2 (15:35→15:41)
[2021-08-02] MEDS: LACTATED RINGERS 1,000 ML 120 ML IV (15:38)
[2021-08-02] MEDS: ONDANSETRON 4 MG/2 ML INJ IV ×2 (15:38→15:41)
[2021-08-02] MEDS: OXYCODONE IR 5 MG TABLET 10 MG PO (16:29)
--- NOTE | 2021-08-02 17:08 | SUR.PHASEII ---
Assumed care of pt, pt wanting pain meds and wanting to go home. Pt given snack of applesauce and crackers, well tolerated, pain rated 6/10. Assisted pt to dress, walked to BR steady when up and left unit in stable condition. Incentive spirommeter given with instruction and abdominal binder in place. Ice pack placed to incision. d/c instruction discussed with pt in unit and with significant other at the car. Both voiced an understanding.
== END 2021-08-02 16:30 | disposition home or self-care (01) ==
LOC: OR 11:48 → AC 11:48
PROVIDERS: Family Provider Student in an Organized Health Care Education/Training Program; PCP Student in an Organized Health Care Education/Training Program; Referring Provider Surgery; Visit Provider Surgery
PROC: (CPT 49561; principal; 2021-08-02 13:45)
DX: K43.6 Other and unspecified ventral hernia with obstruction, without gangrene (principal)
CPT/HCPCS: 49561; 49568; J0330; J0690; J1100; J1170; J1885; J2250; J2405; J2704; J3010

== ENCOUNTER → 2022-01-10 09:26 | Outpatient (CLI) | payer MEDICARE, MEDICAID, SELFPAY ==
[2022-01-10 11:47] LABS: HIV 1 & 2 Ab/Ag 4th Gen Combo NEGATIVE (NEGATIVE)
[2022-01-25 13:58] LABS: RPR Screen Reactive
== END ==
PROVIDERS: Family Provider Student in an Organized Health Care Education/Training Program; PCP Student in an Organized Health Care Education/Training Program; Referring Provider Student in an Organized Health Care Education/Training Program; Visit Provider Student in an Organized Health Care Education/Training Program
DX: Z72.51 High risk heterosexual behavior (principal)
CPT/HCPCS: 36415; 86592; 86695; 86696; 87389

== ENCOUNTER → 2022-05-31 15:40 | Outpatient (CLI) | payer OTHER, MEDICAID, SELFPAY ==
[2022-05-31 16:33] LABS: Add Manual Diff / Slide Review NO; Basophils Absolute Auto 0 /uL (0-100); Basophils Percent Auto 0.6 % (0-2); Eosinophils Absolute Auto 200 /uL (0-450); Eosinophils Percent Auto 2.9 % (2-4); Hematocrit 37.1 % (36-46); Hemoglobin 12.7 g/dL (12.0-16.0); Lymphocytes Absolute Auto 2300 /uL (1100-4500); Lymphocytes Percent Auto 40.1 % (25-40); Mean Corpuscular HGB Conc 34.4 % (30-36); Mean Corpuscular Hemoglobin 30.6 PG (26-34); Mean Corpuscular Volume 89.1 fL (80-100); Monocytes Absolute Auto 600 /uL (0-900); Monocytes Percent Auto 11.1 % (3-14); Neutrophils Absolute Auto 2600 /uL (1500-7000); Neutrophils Percent Auto 45.3 % (50-75); Platelet Count 239 X10^3/uL (150-400); Red Blood Cell Count 4.16 X10^6/uL (4.0-5.2); Red Cell Distribution Width 13.2 % (11.6-14.8); White Blood Cell Count 5.8 X10^3/uL (4.5-11.0)
[2022-05-31 17:07] LABS: Alanine Aminotransferase 15 IU/L (<35); Albumin 4.2 g/dL (3.5-5.0); Albumin Globulin Ratio 1.3 (1.0-2.8); Alkaline Phosphatase 94 U/L (38-126); Aspartate Aminotransferase 22 IU/L (14-36); BUN Creatinine Ratio 11.5 (6-22); Bilirubin Total 0.4 mg/dL (0.2-1.3); Blood Urea Nitrogen 11 mg/dL (7-17); Carbon Dioxide 23 mmol/L (22-32); Chloride 107 mmol/L (98-107); Estimated Glomerular Filt Rate > 60 mL/min (>60); Globulin 3.2 g/dL (1.7-4.1); Glucose 95 mg/dL (80-110); HEMOLYSIS < 15 (0-50); Potassium 4.1 mmol/L (3.4-5.1); Sodium 137 mmol/L (137-145); Total Protein 7.4 g/dL (6.3-8.2)
[2022-06-03 15:36] LABS: ANA Screen, IFA Negative (.)
== END ==
PROVIDERS: Family Provider Student in an Organized Health Care Education/Training Program; PCP Student in an Organized Health Care Education/Training Program; Referring Provider Student in an Organized Health Care Education/Training Program; Visit Provider Student in an Organized Health Care Education/Training Program
DX: F20.0 Paranoid schizophrenia (principal); G89.29 Other chronic pain; R21 Rash and other nonspecific skin eruption; M54.50 Low back pain, unspecified
CPT/HCPCS: 36415; 80053; 85025; 86038

== ENCOUNTER → 2023-11-20 12:30 | Outpatient (CLI) | payer MEDICARE, MEDICAID, SELFPAY ==
--- NOTE | 2023-11-20 12:31 | DI.RAD.S_ITS ---
PROCEDURE: XR SHOULDER LT MIN 2V INDICATIONS: S/P fall on 10/23 TECHNIQUE: 3 views of the shoulder were acquired. COMPARISON: [facility], CR, XR SHOULDER RT MIN 2V, 05/12/2020, 10:42. FINDINGS: Bones: No fractures or dislocations. No suspicious bony lesions. Visualized ribs appear intact. Periarticular osteophyte formation at the acromioclavicular glenohumeral joints. Soft tissues: No suspicious soft tissue calcifications. IMPRESSION: No acute fracture. No osseous lesion. If symptoms and/or clinical suspicion for pathology persist, further assessment with repeat, or advanced imaging (e.g., CT, MRI, or bone scan) may be helpful for further assessment. Dictated by: Lani Garcia M.D. on 11/20/2023 at 13:33 Approved by: Lani Garcia M.D. on 11/20/2023 at 13:33
--- NOTE | 2023-11-20 12:31 | DI.RAD.S_ITS ---
PROCEDURE: XR CERVICAL SPINE 2V OR 3V INDICATIONS: S/P fall on 10/23 TECHNIQUE: 3 view(s) of the cervical spine were acquired. COMPARISON: None. FINDINGS: Bones: No fractures or dislocations to the C7 level. The lateral masses of C1 appear intact on the odontoid view. No suspicious bony lesions. Multilevel disc space narrowing and endplate osteophyte formation, as well as facet hypertrophy. Soft tissues: No prevertebral soft tissue swelling. IMPRESSION: 1. Degenerative disc and facet disease. 2. No acute fracture. No osseous lesion. If symptoms and/or clinical suspicion for pathology persist, further assessment with repeat, or advanced imaging (e.g., CT, MRI, or bone scan) may be helpful for further assessment. Dictated by: Lani Garcia M.D. on 11/20/2023 at 13:34 Approved by: Lani Garcia M.D. on 11/20/2023 at 13:35
--- NOTE | 2023-11-20 12:31 | DI.RAD.S_ITS ---
PROCEDURE: XR HIP W PEL IF DONE LT 2V INDICATIONS: S/P fall on 10/23 TECHNIQUE: 2 views of the hip were acquired. COMPARISON: None. FINDINGS: Bones: No fractures or dislocations. Mild bilateral femoroacetabular joint space narrowing and juxta-articular osteophytosis. No suspicious bony lesions. The visualized pelvic ring appears intact. Soft tissues: No suspicious soft tissue calcifications or masses. IMPRESSION: 1. No acute bony abnormality. If there is high clinical suspicion for a radiographically occult fracture, recommend cross-sectional imaging for further evaluation. 2. Mild bilateral hip osteoarthritis, symmetric. Dictated by: Christopher Yusuf M.D. on 11/20/2023 at 16:59 Approved by: Christopher Yusuf M.D. on 11/20/2023 at 17:00
--- NOTE | 2023-11-20 12:31 | DI.RAD.S_ITS ---
PROCEDURE: XR CHEST 2V INDICATIONS: S/P fall on 10/23 TECHNIQUE: 2 views of the chest were acquired. COMPARISON: [facility], CR, XR HIP W PEL IF DONE LT 2V, 11/20/2023, 12:55. [facility], CR, XR CERVICAL SPINE 2V OR 3V, 11/20/2023, 12:52. [facility], CR, XR SHOULDER LT MIN 2V, 11/20/2023, 12:45. (Additional prior chest x-rays are not available for review from the archive at the time of this dictation.) FINDINGS: Surgical changes and devices: None. Lungs and pleura: An incomplete inspiratory result is noted, causing a crowded appearance to the lung markings. No focal infiltrates are seen. Mild generalized interstitial prominence can be seen. No pneumothorax or significant pleural effusions are seen. Mediastinum: The cardiac contours are within normal limits. The aorta demonstrates calcification and tortuosity. Bones and chest wall: No displaced rib fracture is seen. No suspicious bony abnormalities. Soft tissues appear unremarkable. IMPRESSION: Mild generalized interstitial prominence can be seen. Artifact is suspected, although differential diagnosis includes a small amount of pulmonary edema. No displaced rib fracture or pneumothorax can be seen on this plain film study. If there is strong clinical concern for chest trauma in this patient, please consider a follow-up chest CT with IV contrast for further evaluation. Dictated by: Chaitanya Almeida M.D. on 11/20/2023 at 12:30 Approved by: Chaitanya Almeida M.D. on 11/20/2023 at 12:36
== END ==
PROVIDERS: PCP Student in an Organized Health Care Education/Training Program; Referring Provider Student in an Organized Health Care Education/Training Program; Visit Provider Student in an Organized Health Care Education/Training Program
DX: M47.812 Spondylosis without myelopathy or radiculopathy, cervical region (principal); M16.0 Bilateral primary osteoarthritis of hip; M50.30 Other cervical disc degeneration, unspecified cervical region; M54.50 Low back pain, unspecified; M25.512 Pain in left shoulder; M25.552 Pain in left hip
CPT/HCPCS: 71046; 72040; 73030; 73502

== ENCOUNTER → 2024-06-12 14:38 | Outpatient (CLI) | payer MEDICARE, MEDICAID, SELFPAY ==
--- NOTE | 2024-06-12 14:39 | DI.RAD.S_ITS ---
PROCEDURE: XR KNEE STANDING BI INDICATIONS: Bilateral knee pain TECHNIQUE: 2 views of the bilateral knee(s), four views total COMPARISON: None. FINDINGS: Bones: No acute fractures or dislocations. Patellar alignment is normal. No suspicious bony lesions. Joint spaces appear prominently thinned medially at the medial compartment of each knee with associated medial subchondral cysts superiorly and inferiorly in the area where there is near aqoj-qe-ayko articulation with weightbearing. Soft tissues: No knee joint effusions. No suspicious soft tissue calcification. IMPRESSION: Near severe medial compartment symmetric bilateral degenerative knee joint osteoarthritis with subchondral cyst formation bilaterally, both above and below the joint space at the medial border of the joint margins. Dictated by: dArian Morejon M.D. on 06/13/2024 at 12:39 Approved by: Adrian Morejon M.D. on 06/13/2024 at 12:41
== END ==
PROVIDERS: PCP Student in an Organized Health Care Education/Training Program; Referring Provider Student in an Organized Health Care Education/Training Program; Visit Provider Student in an Organized Health Care Education/Training Program
DX: M17.0 Bilateral primary osteoarthritis of knee (principal); M25.561 Pain in right knee; M25.562 Pain in left knee
CPT/HCPCS: 73565